=== PATIENT | female | born 1990 | race Hispanic/Latino ===

== ENCOUNTER 2022-10-08 13:28 | Emergency (ER) | payer SELFPAY ==
[~2022-10-08] VITALS: Ht 152.4 cm; Wt 52.1 kg
[2022-10-08 14:04] VITALS: BP 102/69
[2022-10-08 15:45] LABS: URINE BILIRUBIN - DIPSTICK NEGATIVE (NEGATIVE); URINE BLOOD DIPSTICK NEGATIVE (NEGATIVE); URINE COLOR YELLOW; URINE GLUCOSE - DIPSTICK NEGATIVE (NEGATIVE); URINE KETONE NEGATIVE (NEGATIVE); URINE LEUK ESTERASE NEGATIVE (NEGATIVE); URINE PROTEIN - DIPSTICK NEGATIVE (NEG-TRACE); URINE UROBILINOGEN - DIPSTICK 0.2 E.U./dL (0.2)
[2022-10-08 15:49] LABS: URINE NITRITE - DIPSTICK NEGATIVE (Negative)
[2022-10-08 17:00] VITALS: BP 102/69
== END 2022-10-08 17:00 | disposition home or self-care (01) | DRG 696 ==
LOC: ED 13:28
PROVIDERS: Family Medicine
DX: R30.0 Dysuria (principal); R10.30 Lower abdominal pain, unspecified